=== PATIENT | female | born 1990 | race African-American/Black ===

== ENCOUNTER 2017-06-24 14:59 | Emergency (ER) | payer OTHER ==
[2017-06-24 15:13] VITALS: BP 150/81
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
[2017-06-24] MEDS ORDERED: TORADOL IM ONE (16:37)
[2017-06-24 17:32] LABS: Basophils % (Auto) 0.6 % (0.0-1.8); Hematocrit 36.7 % (30.3-42.9); Hemoglobin 11.6 gm/dl (10.1-14.3); Mean Corpuscular HGB Conc 32 % (30-34); Platelet Count 251 K/mm3 (140-440); Red Cell Distribution Width 16.7 % (13.2-15.2); White Blood Count 11.7 K/mm3 (4.5-11.0)
[2017-06-24 17:36] LABS: Mean Corpuscular Hemoglobin 22 pg (28-32); Mean Corpuscular Volume 69 fl (79-97)
[2017-06-24 17:55] LABS: Anion Gap 21 mmol/L; BUN/Creatinine Ratio 18; Blood Urea Nitrogen 11 mg/dL (7-17); Carbon Dioxide 23 mmol/L (22-30); Chloride 101.3 mmol/L (98-107); Creatine Kinase 52 units/L (30-135); Glucose 84 mg/dL (65-100); Potassium 3.9 mmol/L (3.6-5.0); Sodium 141 mmol/L (137-145)
[2017-06-24 18:08] LABS: Bilirubin,Urine NEG (Negative); Blood,Urine NEG (Negative); Ketones,Urine NEG (Negative); Leukocyte Esterase,Urine LG (Negative); Nitrite,Urine NEG (Negative); Protein,Urine <15 mg/dL mg/dL (Negative)
[2017-06-24 18:09] LABS: Creatine Kinase MB < 1.0 ng/mL (0.0-4.0)
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
== END 2017-06-24 19:04 | disposition home or self-care (01) ==
LOC: ED 14:59
DX: S13.4XXA Sprain of ligaments of cervical spine, initial encounter (principal); S86.911A Strain of unspecified muscle(s) and tendon(s) at lower leg level, right leg, initial encounter; N39.0 Urinary tract infection, site not specified; R07.81 Pleurodynia; R51 Headache; F17.200 Nicotine dependence, unspecified, uncomplicated; V49.49XA Driver injured in collision with other motor vehicles in traffic accident, initial encounter; Y93.89 Activity, other specified; Y92.89 Other specified places as the place of occurrence of the external cause; Y99.8 Other external cause status
CPT/HCPCS: 36415; 70450; 71111; 72125; 73080; 73562; 80048; 81001; 82550; 82553; 84484; 84703; 85025; 93005; 93010; 96372; 99285; J1885

== ENCOUNTER 2017-12-21 04:36 | Outpatient (CLI) | payer MEDICAID ==
[2017-12-21] MEDS ORDERED: LACTATED RINGERS 500 ML IV ONE (05:40)
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
[2017-12-21 07:40] VITALS: BP 137/71
== END 2017-12-21 07:36 | disposition home or self-care (01) ==
LOC: TRG 04:36
PROVIDERS: ATTEND Obstetrics & Gynecology
DX: O47.02 False labor before 37 completed weeks of gestation, second trimester (principal); Z3A.24 24 weeks gestation of pregnancy
CPT/HCPCS: 59025; 76816

== ENCOUNTER 2018-02-24 03:20 | Inpatient (IN) | payer MEDICAID ==
[2018-02-24] MEDS ORDERED: LACTATED RINGERS 1,000 ML ONE ×2 (04:30→04:53)
[2018-02-24] MEDS ORDERED: APRESOLINE IV ONE (04:31)
[2018-02-24] MEDS ORDERED: BICITRA ONE (04:52)
[2018-02-24] MEDS ORDERED: REGLAN ONE (04:52)
[2018-02-24] MEDS ORDERED: PEPCID IV ONE ×2 (04:53→05:19)
[2018-02-24] MEDS ORDERED: MAGNESIUM SULFATE 4GM/100ML 4 GM/100 ML BAG IV ONE ×2 (05:10→05:19)
[2018-02-24] MEDS ORDERED: MAGNESIUM SULFATE 40GM/1000ML 40 GM/1,000 ML BAG IV ONE (05:10)
[2018-02-24 05:13] LABS: Hematocrit 32.3 % (30.3-42.9); Hemoglobin 10.1 gm/dl (10.1-14.3); Mean Corpuscular HGB Conc 31 % (30-34); Mean Corpuscular Hemoglobin 22 pg (28-32); Mean Corpuscular Volume 70 fl (79-97); Platelet Count 191 K/mm3 (140-440); Red Blood Count 4.61 M/mm3 (3.65-5.03); Red Cell Distribution Width 14.8 % (13.2-15.2)
[2018-02-24] MEDS ORDERED: REGLAN IV ONE (05:19)
[2018-02-24] MEDS ORDERED: BICITRA PO ONE (05:19)
[2018-02-24] MEDS ORDERED: DIPRIVAN 10 MG/ML IV ONE (05:29)
[2018-02-24] MEDS ORDERED: QUELICIN ONE (05:29)
--- NOTE | 2018-02-24 05:36 | History and Physical Report ---
History of Present Illness Date of examination: 02/24/18 Date of admission: 02/24/18 Chief complaint: vaginal bleeding since 0230 this am History of present illness: Pt present with significant vaginal bleeding. I d/w that she may have an abruption due to elevated bps and no h/o HTN along with dx of severe pre E. Both require immediate delivery. Anesthesia and charge nurse are aware. Will proceed with urgent c/s at this time. Pt did not call provider prior to arrival in triage area.When provider arrived approximately 2 chucks had been partially saturated with EBL of about 200cc. EDC Confirmation: 04/03/2018 Gestational Age: 14 5/7 weeks Past History : 2 Term Births: 1 Living Children: 1 # 1 Delivery date: 07/06/2016 Weeks Gestation: 40 labor: no Delivery type: Anesthesia type: epidural Delivery location: [facility] Sex: Female weight: 7-12 Past Medical History: psoriasis Negative Past Medical History Past Surgical History: negative Past Medical History Anesthesia Complications: negative Anemia: negative Autoimmune Disorder: negative Bleeding Disorder: negative Blood Transfusions: negative Breast Disease: negative Diabetes: negative Heart Disease: negative Hypertension: negative Hepatitis/Liver Disease: negative Kidney Disease/UTI: negative Neurologic/Epilepsy/Migraines: negative Phlebitis/Varicosities: negative Psychiatric: negative Pulmonary Disease/Asthma: negative Thyroid Disease: negative Hospitalizations: negative Surgery (Non-car spotter): negative Abnormal PAP: negative KRUNAL Exposure: negative Infertility: negative Uterine Anomaly: negative Uterine Surgery (not C/S): negative Other Gynecologic Problems: negative Infection History Hx of STD: none HIV Risk Eval: low risk Hepatitis B Risk Eval: low risk Personal hx. of genital herpes: no Partner hx. of genital herpes: no Varicella/Chicken Pox Status: Previous Disease TB Risk: no Genetic History Congenital Heart Defect: Mom: no Dad: no Muriel Disease: Mom: no Dad: no Thalassemia Mom: no Dad: no Neural Tube Defect Mom: no Dad: no Down's Syndrome Mom: no Dad: no Sarwat-Sachs Mom: no Dad: no Sickle Cell Disease/Trait Mom: no Dad: no Hemophilia Mom: no Dad: no Muscular Dystrophy Mom: no Dad: no Cystic Fibrosis Mom: no Dad: no [place] Chorea Mom: no Dad: no Mental Retardation Mom: no Dad: no Fragile X Mom: no Dad: no Other Genetic/Chromosomal Disorder Mom: no Dad: no Child w/other defect Mom: no Dad: no Enviromental Exposures Xray Exposure: no Medication, drug, or alcohol use since LMP: no Chemical/Other Exposure: no Exposure to Cat Liter: no Hx of Parvovirus (Fifth Disease): no Current Allergies (reviewed today): No known allergies Past History Past Medical History: other (skin disorder) Past Surgical History: no surgical history 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 Family/Genetic History: none Social history: no significant social history - Obstetrical History Expected Date of Delivery: 04/03/18 Actual Gestation: 34 Week(s) 4 Day(s) : 3 Para: 1 Number of Living Children: 1 Medications and Allergies Allergies Allergy/AdvReac Type Severity Reaction Status Date / Time No Known Allergies Allergy Unverified 04/30/13 00:38 Home Medications Medication Instructions Recorded Confirmed Last Taken Type RX: No Known Home Medications [No 02/24/18 02/24/18 Unknown History Reported Home Medications] Active Meds: Active Medications Magnesium Sulfate (Magnesium Sulfate 4gm/100ml) 4 gm in 100 mls @ 300 mls/hr IV ONCE ONE Stop: 02/24/18 05:38 Cefazolin Sodium (Ancef/Sterile Water 2 Gm/20 Ml) 2 gm in 20 mls @ 80 mls/hr IV PREOP NR; Protocol Stop: 02/24/18 23:45 Lactated Ringer's (Lactated Ringers) 1,000 mls @ 2,250 mls/hr IV PREOP ANDREA Stop: 02/25/18 06:27 Last Admin: 02/24/18 05:27 Dose: 2,250 mls/hr Oxytocin/Sodium Chloride (Pitocin/Ns 20 Unit/1000ml Drip) 20 units in 1,000 mls @ 0 mls/hr IV TITR ANDREA Review of Systems All systems: negative - Vital Signs Vital signs: Vital Signs Pulse BP Pulse Ox 91 H 202/87 93 02/24/18 04:10 02/24/18 04:10 02/24/18 04:10 Temp Pulse Resp BP Pulse Ox 98.7 F 101 H 20 161/77 98 02/24/18 04:20 02/24/18 05:33 02/24/18 04:20 02/24/18 05:33 02/24/18 05:30 - Physical Exam Cardiovascular: Normal S1, Normal S2 Lungs: Positive: Clear to auscultation, Normal air movement Abdomen: Positive: normal appearance, soft. Negative: distention, tenderness Genitourinary (Female): Positive: normal external genitalia, normal perenium, other (minimal bleeding noted on glove with exam) - Obstetrical FHR: category 1 Cervical Dilatation: 1 (post/firm) Cervical Effacement Percentage: 50 station: -2 Results Result Diagrams: 02/24/18 04:40 02/24/18 04:40 Abnormal lab results 02/24/18 Range/Units 04:40 MCV 70 L (79-97) fl MCH 22 L (28-32) pg All other labs normal. Assessment and Plan - Patient Problems (1) Severe pre-eclampsia Current Visit: Yes Status: Acute Qualifiers: Trimester: third trimester Qualified Code(s): O14.13 - Severe pre-eclampsia , third trimester Plan to address problem: -preceed with delivery -all labs are not back but bp in sever range (2) Placental abruption affecting delivery Current Visit: Yes Status: Acute Plan to address problem: -moderate bleeding noted on exam. -proceed with delivery as pt is remote from delivery
[2018-02-24] MEDS ORDERED: NACL 0.9% IR ONE (05:40)
[2018-02-24] MEDS ORDERED: WATER FOR IRRIG STERILE IR ONE (05:40)
[2018-02-24 05:44] LABS: Alanine Aminotransferase 7 units/L (7-56)
[2018-02-24] MEDS ORDERED: SUBLIMAZE ONE ×2 (05:55→06:19)
[2018-02-24] MEDS ORDERED: LACTATED RINGERS 1,000 ML IV SCH (06:00)
[2018-02-24] MEDS ORDERED: PITOCin/NS 20 UNIT/1000ML DRIP 20 UNITS/1,000 ML BAG IV SCH (06:00)
[2018-02-24] MEDS ORDERED: ANCEF/STERILE WATER 2 GM/20 ML 2 GM/20 ML SYRINGE IV NR (06:00)
[2018-02-24 06:14] LABS: Bilirubin,Urine NEG (Negative); Blood,Urine NEG (Negative); Color,Urine Yellow (Yellow); Mucus,Urine FEW /HPF; Urobilinogen,Urine < 2.0 mg/dL (<2.0)
[2018-02-24] MEDS ORDERED: TORADOL ONE (06:22)
[2018-02-24] MEDS ORDERED: XYLOCAINE MPF 2% ONE (06:22)
[2018-02-24] MEDS ORDERED: BENADRYL ONE (06:27)
--- NOTE | 2018-02-24 06:27 | Operative Report ---
Operative Report Operative Report: Date of procedure: 02/24/2018 Pre-operative diagnosis: 34-4/7 weeks' gestation Suspected placental abruption Severe preeclampsia Post-operative diagnosis: Same Procedure name(s): Primary low transverse section via Pfannenstiel skin incision Surgeon: Dr. Li Dentist Attendant: ALEX Anesthesia: Gen. endotracheal anesthesia EBL: Approximately 200 mL of blood noted in triage on Chucks prior to section. 500 mL EBL intraoperatively Urine output: 200 mL Fluids: 1 L Findings: Liveborn female infant weight 4 lbs. 15 oz. Apgars of 7 and 8 at one and 5 minutes With rupture of membranes some old blood clots were noted with delivery of baby as well as some old clots noted behind placenta with delivery of placenta from the uterus Grossly normal fallopian tubes and ovaries bilaterally Normal uterus Indications: Patient presented to triage with a 1 hour history of vaginal bleeding. While in triage patient was noted to have an increase in vaginal bleeding that became significant. Patient was also noted to have blood pressure that red 202/87. Determined at this time that patient was possibly abrupting and remote from delivery. Decision was made at this time to proceed to the operating room for urgent section. All risks benefits and alternatives were discussed with the patient. Consents and signed and placed on the chart. Risk of premature delivery as well as was also discussed with the patient. Again all questions were addressed and answered. Procedure: Patient was taking to the operating room. Patient was then prepped and draped in sterile fashion after anesthesia was found to be adequate. A low transverse skin incision was made with the scalpel and carried down to the underlying layer of fascia with the Bovie. The fascia was then incised in the midline and this incision was extended bilaterally with the scalpel. The rectus muscles were then bluntly divided in the midline. The peritoneum was identified and entered into bluntly. A lower transverse uterine incision was made with the scalpel and extended bilaterally with blunt dissection. Artificial rupture of membranes was performed yielding clear amniotic fluid. The 's head was then delivered atraumatically. The anterior shoulder and rest of infant delivered without difficulty. The umbilical cord was clamped x2. The cord was cut. The was then placed in sterile bassinet. The cord blood was collected. The placenta was manually extracted in its entirety. The uterus was exteriorized and cleared of all clots and debris. The uterine incision was closed using 0 Vicryl in a running locking fashion. Figure-of- eight sutures using 0 Vicryl were used along the incision line to secure excellent hemostasis. The posterior cul-de-sac was copiously irrigated. The uterus was returned to the abdomen. The gutters were also irrigated. The anterior rectus muscles were reapproximated using 3-0 Vicryl. The anterior rectus fascia was reapproximated using 0 Vicryl in a running fashion. The subcuticular fat was reapproximated using 2-0 Vicryl in a running fashion. The skin was reapproximated with 4-0 Monocryl in a subcuticular stitch. The patient tolerated the procedure well. Sponge lap and needle counts were all correct x3. Patient was taken to the recovery room awake and in stable condition.
[2018-02-24] MEDS ORDERED: ZEMURON IV ONE (06:28)
[2018-02-24] MEDS ORDERED: ZOFRAN ONE ×2 (06:29→06:30)
[2018-02-24] MEDS ORDERED: TORADOL IV PRN (06:36)
[2018-02-24] MEDS ORDERED: LANSINOH TP PRN (06:36)
[2018-02-24] MEDS ORDERED: NARCAN 0.4 MG/1 ML IV PRN ×2 (06:36)
[2018-02-24] MEDS ORDERED: MYLICON PO PRN (06:36)
[2018-02-24] MEDS ORDERED: TUCKS PAD TP PRN (06:36)
[2018-02-24] MEDS ORDERED: DEMEROL ONE (06:44)
[2018-02-24] MEDS ORDERED: D5LR 1,000 ML IV SCH (07:00)
[2018-02-24] MEDS ORDERED: SODIUM CHLORIDE FLUSH SYRINGE 10 ML IV NR (07:00)
[2018-02-24] MEDS: MAGNESIUM SULFATE 40GM/1000ML 40 GM/1,000 ML BAG IV SCH (07:10)
[2018-02-24] MEDS ORDERED: DEMEROL IV PRN (07:10)
[2018-02-24] MEDS ORDERED: MORPHINE PCA 30MG/30ML IV SCH (08:00)
[2018-02-24 08:22] LABS: Uric Acid 5.1 mg/dL (3.5-7.6)
[2018-02-24] MEDS ORDERED: FEOSOL PO SCH (10:00)
[2018-02-24] MEDS: ANCEF/NS 1 GM/50 ML 1 GM/50 ML BAG IV SCH ×2 (14:00→22:49)
[2018-02-24] MEDS: NORMODYNE PO SCH ×2 (16:35→22:44)
[2018-02-24 17:30] LABS: Hemoglobin 9.2 gm/dl (10.1-14.3)
[2018-02-25] MEDS: MAGNESIUM SULFATE 40GM/1000ML 40 GM/1,000 ML BAG IV SCH (03:23)
[2018-02-25] MEDS ORDERED: BOOSTRIX IM ONE (06:00)
--- NOTE | 2018-02-25 06:28 | Progress Note ---
Assessment and Plan Pt A&O X 3 C/O being sore and stiff. Denies VALLEJO, blurred vision, chest pain. VSS BP normotensive MGSO4 due down now. FF below umb Lochia scant Incision D&I steri strips H&H 05/09 Pt is asymptomatic Doing well s/p section Severe PreE. P: Continue close monitoring of BP. Advance diet and activity as tolerated. Pt desires d/c in the AM. Subjective - Subjective Date of service: 02/25/18 (MGSO4 to be d/c @ 0600) Patient reports: voiding normally [place]: transported ([facility] Pt states baby is stable and eating) Objective - Vital Signs Latest vital signs: Vital Signs Temp Pulse Resp BP BP Pulse Ox 02/25/18 00:00 98.2 F 89 20 115/73 98 02/24/18 22:44 89 127/70 02/24/18 22:25 98.0 F 88 20 126/73 96 02/24/18 20:05 98.2 F 91 H 20 107/66 98 02/24/18 18:52 97.7 F 97 H 20 122/70 96 02/24/18 17:57 97.9 F 95 H 20 132/76 95 02/24/18 14:21 98.2 F 93 H 20 141/82 95 02/24/18 12:00 98.6 F 96 H 18 120/73 93 02/24/18 09:00 98.7 F 99 H 22 111/57 02/24/18 08:25 99.1 F 102 H 20 132/76 96 02/24/18 08:20 99.1 F 101 H 25 H 132/76 96 02/24/18 08:15 100 H 16 129/67 96 02/24/18 08:10 105 H 15 146/75 96 02/24/18 08:05 100 H 19 127/69 95 02/24/18 08:00 104 H 19 126/65 93 02/24/18 07:56 97 H 16 133/68 02/24/18 07:55 15 02/24/18 07:51 97 H 20 129/72 95 02/24/18 07:50 101 H 15 112/68 95 02/24/18 07:46 102 H 28 H 112/68 94 02/24/18 07:45 20 02/24/18 07:40 105 H 22 127/65 94 02/24/18 07:34 101 H 22 132/75 93 02/24/18 07:30 100 H 29 H 132/75 95 02/24/18 07:28 97 H 20 136/76 96 02/24/18 07:22 95 H 21 147/72 92 02/24/18 07:20 93 H 18 147/72 94 02/24/18 07:16 90 29 H 145/71 96 02/24/18 07:11 92 H 25 H 137/72 96 02/24/18 07:10 97.7 F 89 22 137/72 96 02/24/18 07:06 91 H 23 138/71 95 02/24/18 07:00 90 18 143/71 98 02/24/18 06:56 96 H 29 H 147/77 97 02/24/18 06:51 97.7 F 93 H 18 156/69 96 02/24/18 06:50 97 02/24/18 06:46 98 02/24/18 06:40 97 Intake and Output 02/24/18 02/24/18 02/25/18 14:59 22:59 06:59 Intake Total 550 240 Output Total 200 550 600 Balance 350 -550 -360 Intake: IV 550 ANCEF/NS 1 GM/50 ML 1 gm 50 In 50 ml @ 100 mls/hr IV Q8H [facility] Rx#:[id number] Oral 240 Output: Urine 200 550 600 Indwelling Catheter 100 600 Other: Total, Intake Amount 240 Total, Output Amount 100 600 Voiding Method Indwelling Catheter - Exam Breasts: Present: normal Cardiovascular: Present: Regular rate Lungs: Present: Clear to auscultation, Normal air movement Abdomen: Present: normal appearance, soft, normal bowel sounds Uterus: Present: normal, firm, fundal height below umbilicus Extremities: Present: normal Deep Tendon Reflex Grade: Normal +2 Incision: Present: normal, dry, intact - Labs Labs: Abnormal lab results 02/24/18 02/24/18 02/24/18 Range/Units 17:14 17:14 22:08 Hgb 9.2 L (10.1-14.3) gm/dl Hct 29.0 L (30.3-42.9) % Magnesium 4.40 H 4.00 H (1.7-2.3) mg/dL
[2018-02-25] MEDS: NORMODYNE PO SCH ×2 (10:51→22:13)
[2018-02-25] MEDS: NORCO 5/325 PO PRN ×2 (17:27→23:43)
[2018-02-25] MEDS: MOTRIN PO PRN ×2 (17:28→23:44)
--- NOTE | 2018-02-26 06:23 | Discharge Summary ---
Providers - Providers Date of Admission: 02/24/18 05:34 Date of discharge: 02/26/18 Attending physician: ROMAIN GATES Primary care physician: ROMAIN GATES Hospitalization Reason for admission: other (bleeding) Delivery: Procedure: primary low transverse Episiotomy: none Laceration: none Incision: normal, dry, intact Other procedures: none complications: none Discharge diagnosis: IUP at term delivered baby: female (baby transfered to [facility]) Hospital course: pt came in bleeding uncomplicated section dx; abruption NB transferred to [facility] Pt awake req d/c "I want to go see my baby." VSS FF below umb Lochia scant Incision D&I Asymptomatic anemia Doing well s/p section P: d/c today RTO 1 week postop care Instructions given Pt d/c on Labetalol 100mg po BID BP check in office one week Call with VALLEJO, blurred vision, chest pain. Condition at discharge: Good Disposition: DC-01 TO HOME OR SELFCARE - Discharge Diagnoses (1) delivery delivered Status: Acute Comment: RTO 1 week postop care Plan - Discharge Medications Prescriptions: Docusate Sodium [Colace] 100 mg PO BID PRN #60 capsule PRN Reason: Constipation Ferrous Sulfate 324 mg PO QDAY #30 tablet.dr Ibuprofen 800 mg PO Q6HR #30 tablet Labetalol [Normodyne TAB] 100 mg PO BID #60 tablet oxyCODONE /ACETAMINOPHEN [Percocet 5/325] 1 tab PO Q4HR #30 tab - Provider Discharge Summary Activity: routine, no sex for 6 weeks, no heavy lifting 4 weeks, no strenuous exercise Diet: routine Instructions: routine Additional instructions: [] Smoking cessation referral if applicable(refer to patient education folder for contact #) [] Refer to [facility]'s [facility] Booklet Call your doctor immediately for: * Fever > 100.5 * Heavy vaginal bleeding ( >1 pad per hour) * Severe persistent headache * Shortness of breath * Reddened, hot, painful area to leg or breast * Drainage or odor from incision. * Keep incision clean and dry at all times and follow doctor's instructions regarding bathing/showering - Follow up plan Follow up: ROMAIN GATES MD [Primary Care Provider] - 7 Days (Congratulations! Please call [phone] to schedule your postoperative visit in 1 week. Take medications as prescribed. Call with headache, not relieved with Tylenol, blurred vision, chest pain. Call with any concerns.)
[2018-02-26] MEDS: NORCO 5/325 PO PRN (07:53)
[2018-02-26] MEDS: MOTRIN PO PRN (12:50)
[2018-02-26] MEDS: NORMODYNE PO SCH (12:53)
[2018-02-26 12:55] VITALS: BP 145/84
== END 2018-02-26 15:10 | disposition home or self-care (01) | DRG 765 ==
LOC: TRG 03:20 → APU 05:34 → OB 09:20
PROVIDERS: ADMIT Obstetrics & Gynecology; ATTEND Obstetrics & Gynecology
PROC: 10D00Z1 Extraction of Products of Conception, Low, Open Approach (ICD-10-PCS; principal; 2018-02-24)
DX: O14.13 Severe pre-eclampsia, third trimester (principal); O45.93 Premature separation of placenta, unspecified, third trimester; Z3A.34 34 weeks gestation of pregnancy; Z37.0 Single live birth; O99.02 Anemia complicating childbirth; D64.9 Anemia, unspecified
CPT/HCPCS: 36415; 81001; 82565; 83615; 83735; 84450; 84460; 84550; 85014; 85018; 85027; 86850; 86900; 86901; 88307; 99211; G0463; J0330; J0360; J0690; J1200; J1885; J2175; J2270; J2405; J2590; J2704; J2765; J3010; J3475; J7120; J7121